=== PATIENT | male | born 1940 | race Caucasian/White ===

== ENCOUNTER 2020-06-30 14:46 | Inpatient (IN) ==
[2020-06-30] MEDS ORDERED: FUROSEMIDE 40 MG/4 ML VIAL IV ONE (15:12)
--- NOTE | 2020-06-30 15:50 | Emergency Department Note ---
HPI General Chief complaint: Extremity Problem,Nontraumatic Stated complaint: SOB, cellulitis, low BP Time Seen by Provider: 06/30/20 14:53 Source: patient Mode of arrival: ambulatory Limitations: no limitations History of Present Illness HPI Narrative: Mr. 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 His most recent emergency room visit was for acute CHF exacerbation on 06/11/20 where he had a full work-up at that time including a work-up to rule out PE, which was negative. He was diuresed in the emergency department and sent home with oral Lasix. He presents to the emergency room today with worsening lower extremity edema, abdominal bloating and shortness of breath. The patient has some dementia at baseline. I obtained a majority of his history from his via telephone this evening. She states that since he was last in the ER he's been intermittently taking his Lasix. She reports he only takes it when he is feeling more short of breath or experiencing increasing edema; however, over the last 2 weeks she has noted increasing abdominal bloating and lower extremity edema and thinks he is essentially noncompliant. She states that last night he was restless and profoundly short of breath and reports that this has been worsening over the last 2 weeks. In addition, she believes he is much more confused than his baseline. It has been many years since he has seen a hydraulic rockbreaker operator. His previous hydraulic rockbreaker operator was Dr. Elias. He has refused an ICD for his cardiomyopathy in the past. I reviewed his POLST form with his and she reports that he is DNR/ DNI, which confirms an earlier conversation I had with him. Initially the patient is agreeable to admission for diuresis; however, he has become increasingly more agitated and requesting to leave, which his feels is consistent with his ing. She has indicated she would like him to stay. Related Data Home Medications Medication Instructions Recorded Confirmed donepezil 5 mg PO DAILY 06/30/20 07/01/20 Preparation H 1 dose DC DAILY 07/02/20 07/02/20 Previous Rx's Medication Instructions Recorded digoxin 125 mcg (0.125 mg) tablet 125 mcg PO QDAY #90 tab 06/01/20 furosemide 20 mg PO QDAY #30 tab 06/12/20 hydrocortisone 2.5 % topical cream 1 applic DC QID PRN #30 g 06/22/20 with perineal applicator Allergies Allergy/AdvReac Type Severity Reaction Status Date / Time No Known Drug Allergies Allergy Verified 06/30/20 14:51 Review of Systems ROS ROS Narrative: Narrative: Constitutional: Reports as per HPI Cardiovascular: Reports dyspnea on exertion, orthopnea, edema and paroxysmal nocturnal dyspnea; Denies chest pain Respiratory: Reports shortness of breath; Denies cough and wheezes Gastrointestinal: Reports other (Abdominal bloating and fullness) Integumentary: Reports lesions (Chronic venous stasis ulcer wounds of the right lower extremity) Neurological: Reports confusion Psychiatric: Reports anxiety and other (Dementia) Endocrine: Denies polydipsia and polyuria PFSH Narrative Patient History Narrative: Heart failure with reduced EF of 25 to 30% diagnosed on echocardiogram 2014. The patient has refused placement of ICD in the past. Medical/Surgical/Family History All Active Problems Acute exacerbation of CHF (congestive heart failure) (Acute) Systolic congestive heart failure (Acute) Shortness of breath (Acute) Pleural effusion (Acute) CHF, acute on chronic (Acute) Constipation (Acute) Hemorrhoids (Acute) Anal or rectal pain (Acute) Coronary artery disease (Chronic) Cardiomegaly (Chronic) Memory loss (Acute) Edema, peripheral (Acute) Shortness of breath (Acute) Gallbladder polyp (Acute) Hypovitaminosis D (Chronic) Pulmonary nodule (Acute) CHF (congestive heart failure) (Chronic) DMII (diabetes mellitus, type 2) (Chronic) PVD (peripheral vascular disease) (Acute) Hypertension, essential (Chronic) Hyperlipidemia (Chronic) Neuropathy of both feet (Chronic) Heartburn (Chronic) Depression (Chronic) Arthritis (Chronic) History of cigarette smoking (Chronic) Chewing tobacco use (Chronic) Obesity (Chronic) Anxiety (Chronic) Medical History Abdominal pain (Inactive) Due to age and comorbidities as well as shortness of breath, pallor, and epigastric abdominal pain I feel that the patient will need a more extensive work-up and can be completed in minor care and have asked him to go directly across the street to the emergency department. Patient was in agreement. I discussed this with Dr. Reardon. Anxiety (Chronic) Anxiety (Inactive) Arthritis (Chronic) Blood pressure decreased (Inactive) Cardiomegaly (Chronic) Per CT scan 06/11/2020. Chewing tobacco use (Chronic) CHF (congestive heart failure) (Chronic) Coronary artery disease (Chronic) Visible on CT scan 06/11/2020 Depression (Chronic) DMII (diabetes mellitus, type 2) (Chronic) Heartburn (Chronic) History of cigarette smoking (Chronic) Hyperlipidemia (Chronic) Hypertension, essential (Chronic) Influenza vaccine refused (Inactive) Lumbar pain (Inactive) Lumbar strain (Inactive) Medication withdrawal (Inactive) Memory loss (Acute) Nausea alone (Inactive) Neuropathy of both feet (Chronic) Obesity (Chronic) Pallor (Inactive) Pneumococcal vaccine refused (Inactive) Pneumonia (Resolved) SOB (shortness of breath) (Inactive) Suprapubic pain (Inactive) Family History Mother Arthritis Essential hypertension Myocardial Infarction Father Arthritis Dementia Cerebrovascular accident (CVA) Unknown Diabetes mellitus Social History Smoking Status: Smokeless tobacco Alcohol Intake Frequency: does not drink Substance Use: does not use Exam Narrative Narrative: General: AOx3, dyspneic and weak. HEENT: PERRLA, EOMI, normocephalic. Moist mucous membranes. Normal facies and poor oral dentition. Neck: JVD to the clavicle is noted with head of bed at 45 degrees Chest: Symmetric Respiratory: Lungs CTAB anteriorly in the upper lobes. He is dyspneic with speaking. Heart: RRR, no M/C/R Abdomen: Mild tenderness. Distention consistent with anasarca. Extremities: Bilateral lower extremities are cold to the touch. There is 2-3+ pitting edema bilaterally. Distal pulses are weak bilaterally and 1+. Neuro: No focal deficits. Cranial nerves II-XII normal. Skin: Right lower extremity with 2 venous stasis ulcers. No associated erythema. Bilateral lower extremities consistent with venous stasis. Psych: Normal mood and affect Hematologic/lymphatic/immunologic: No lymphadenopathy. Diffuse skin bruising noted. General Limitations: no limitations Course Course Course Narrative: 79-year-old male with HFrEF 25 to 30% who is evaluated for acute CHF exacerbation. Reevaluation(s) Reevaluation #1: Basic labs including CBC and chemistry. Add BTNP. Chest x-ray Given clinical picture of anasarca and significant dyspnea on exam we will give IV Lasix now and monitor urine output. Covid screen for probable admission Reevaluation #2: BTNP is significantly elevated at 17,000. Previous evaluation on 06/11 was 8000. His CMP reveals a creatinine of 1.3 which is up from 1.1 on 06/11 so currently no JACKELINE is noted, but he remains at risk The patient has become more confused during this evaluation and is increasingly agitated requesting to leave. I have discussed the case with his who would like him to stay for diuresis. We have also discussed the possibility of a hospice evaluation during this admission, which she agrees may be appropriate. Awaiting signout with the hospitalist, Dr. Silva Vital Signs Vital signs: Vital Signs Temperature 97.0 F 06/30/20 14:46 Pulse Rate 80 06/30/20 14:46 Respiratory Rate 24 H 06/30/20 14:46 Blood Pressure 104/73 06/30/20 14:46 Pulse Oximetry (%) 97 06/30/20 14:46 Temperature 97.2 F 07/02/20 16:02 Pulse Rate 80 07/02/20 16:02 Respiratory Rate 20 07/02/20 16:02 Blood Pressure 113/74 07/02/20 16:02 Pulse Oximetry (%) 94 07/02/20 16:02 [facility] MDM Narrative Medical decision making narrative: Acute CHF exacerbation: With anasarca and symptomatic. His BTNP is significantly more elevated since his previous evaluation on 06/11/2020 in the ED. He has been noncompliant with his medicat ions, which is largely contributing to this exacerbation. -Admit inpatient hospitalist service for aggressive diuresis; the patient has been signed out to Dr. Silva -The patient declines advanced heart therapies including placement of an ICD. -I discussed the possibility of a hospice consult with the patient's , which she is amenable to. Patient is also agreeable to a hospice consult. Lab Data Result diagrams: 06/30/20 15:30 06/30/20 15:30 Labs: Lab Results 06/30/20 06/30/20 06/30/20 Range/Units 15:30 15:30 17:35 WBC 9.1 (4.5-11.0) K/mcL RBC 6.03 H (4.50-5.90) M/mcL Hgb 15.4 (13.5-16.5) g/dL Hct 48.8 (41.0-55.0) % MCV 80.9 (80.0-100.0) fL MCH 25.5 L (26.0-34.0) pg MCHC 31.6 (31.0-36.0) g/dL RDW 18.6 H (11.5-14.5) % Plt Count 267 (140-440) K/mcL MPV 10.1 (7.4-10.4) fL Neut % (Auto) 68.2 (38.0-78.0) % Lymph % (Auto) 21.2 (15.0-49.0) % [place] % (Auto) 9.4 (1.0-12.0) % Eos % (Auto) 0.8 (0.0-7.0) % Baso % (Auto) 0.4 (0.0-2.0) % Lymph # (Auto) 1.94 (1.50-4.80) K/mcL [place] # (Auto) 0.86 (0.10-0.90) K/mcL Eos # (Auto) 0.07 (0.00-0.70) K/mcL Baso # (Auto) 0.04 (0.00-0.20) K/mcL Absolute Neutrophils 6.22 (1.80-8.00) K/mcL VBG Lactic Acid 2.9 H (0.5-2.0) mmol/L Sodium 136 (133-145) mmol/L Potassium 4.4 (3.3-5.1) mmol/L Chloride 98 (96-108) mmol/L Carbon Dioxide 19 L (22-30) mmol/L Anion Gap 19.0 H (8.0-16.0) BUN 32 H (8-23) mg/dL Creatinine 1.3 H (0.7-1.2) mg/dL GFR Calculation 52 Glucose 132 H (70-105) mg/dL Calcium 9.6 (8.6-10.4) mg/dL Total Bilirubin 1.1 H (0.1-1.0) mg/dL AST 28 (<40) U/L ALT 20 (<40) U/L Alkaline Phosphatase 74 (39-117) U/L NT-Pro-B Natriuret Pep 86097.0 H (<450.0) pg/mL Total Protein 6.2 (5.9-8.4) gm/dL Albumin 3.9 (3.2-5.2) gm/dL Globulin 2.3 (2.2-3.7) gm/dL Albumin/Globulin Ratio 1.7 (1.0-2.3) Discharge Plan Patient/Caregiver Discharge Instructions Pt seen by SUBSEA ENGINEER/PA only: Yes Clinical Impression: Acute exacerbation of CHF (congestive heart failure), Systolic congestive heart failure Patient Disposition: Xfer As Inpt ([facility]) Discharge Date/Time: 06/30/20 20:45
--- NOTE | 2020-06-30 15:59 | XRay Report ---
CLINICAL INFORMATION: acute CHF exacerbation COMPARISON: 06/11/2020 FINDINGS: Moderate cardiomegaly is unchanged. Mediastinum and pulmonary vessels are unremarkable. Moderate bibasilar infiltrates and small effusions have progressed. IMPRESSION: Moderate bibasilar infiltrates and small effusions. Consider aspiration Moderate cardiomegaly, but no pulmonary vascular congestion support marcy CHF Interpreted and Authenticated by: Felipe Ortiz 06/30/20
[2020-06-30 16:03] LABS: Basophils # (Auto) 0.04 K/mcL (0.00-0.20); Basophils % (Auto) 0.4 % (0.0-2.0); Eosinophils # (Auto) 0.07 K/mcL (0.00-0.70); Eosinophils % (Auto) 0.8 % (0.0-7.0); Hematocrit 48.8 % (41.0-55.0); Hemoglobin 15.4 g/dL (13.5-16.5); Lymphocytes # (Auto) 1.94 K/mcL (1.50-4.80); Lymphocytes % (Auto) 21.2 % (15.0-49.0); Mean Cell Volume 80.9 fL (80.0-100.0); Mean Corpuscular HGB Conc 31.6 g/dL (31.0-36.0); Mean Platelet Volume 10.1 fL (7.4-10.4); Monocytes # (Auto) 0.86 K/mcL (0.10-0.90); Monocytes % (Auto) 9.4 % (1.0-12.0); Neutrophils % (Auto) 68.2 % (38.0-78.0); Platelet Count 267 K/mcL (140-440); RBC 6.03 M/mcL (4.50-5.90); Red Cell Distribution Width 18.6 % (11.5-14.5); WBC 9.1 K/mcL (4.5-11.0)
[2020-06-30 17:12] LABS: ALT/SGPT 20 U/L (<40); AST/SGOT 28 U/L (<40); Albumin 3.9 gm/dL (3.2-5.2); Albumin/Globulin Ratio 1.7 (1.0-2.3); Alkaline Phosphatase 74 U/L (39-117); Bilirubin,Total 1.1 mg/dL (0.1-1.0); Blood Urea Nitrogen 32 mg/dL (8-23); Calcium 9.6 mg/dL (8.6-10.4); Carbon Dioxide 19 mmol/L (22-30); Chloride 98 mmol/L (96-108); Globulin 2.3 gm/dL (2.2-3.7); Glomerular Filtration Rate 52; Glucose 132 mg/dL (70-105)
[2020-06-30] MEDS ORDERED: NALOXONE HCL 0.4 MG/ML VIAL IV PRN ×2 (20:10→20:50)
[2020-06-30] MEDS ORDERED: morphine 2 MG/ML VIAL IV PRN ×2 (20:10→20:50)
[2020-06-30] MEDS ORDERED: oxyCODONE/APAP 5/325MG TABLET PO PRN ×2 (20:10→20:50)
[2020-06-30] MEDS ORDERED: ACETAMINOPHEN 325 MG TABLET PO PRN ×2 (20:10→20:50)
[2020-06-30] MEDS ORDERED: IPRATROPIUM/ALBUTEROL 3 ML AMPUL.NEB NEB PRN ×2 (20:15→20:50)
[2020-06-30] MEDS ORDERED: cefTRIAXone 1 GM in DEXTROSE 5% IN WATER 50 ML IV SCH (20:15)
[2020-06-30] MEDS ORDERED: PROMETHAZINE 25 MG TABLET PO PRN ×2 (20:15→20:50)
[2020-06-30] MEDS ORDERED: HYDROCORTISONE PR PRN (20:19)
[2020-06-30] MEDS ORDERED: SODIUM CHLORIDE 0.9% IV SCH (20:30)
[2020-06-30] MEDS ORDERED: FUROSEMIDE IV SCH (20:30)
[2020-06-30] MEDS ORDERED: PIPERACILLIN SODIUM/TAZOBACTAM 3.375 GM in DEXTROSE 5% IN WATER 50 ML IV SCH (20:30)
--- NOTE | 2020-06-30 20:44 | Internal Med History&Physical ---
HPI History of Present Illness Patient information: Note initiated : 06/30/20 at 8:29 pm Service Date, if different from initiated Date: [] Patient: Michael Baugh a 79 y/o M admitted on for SOB, cellulitis, low BP. Chief Complaint: [] History of present illness: Mr. Baugh is a 79 year old M with a past medical history of CHF, diabetes type 2, and chronic back pain who was brought to the ER due to worsening shortness of breath. Patient is a poor historian. Patient has been having worsening shortness of breath with increasing abdomen bloating and lower extremity edema over the past 2 weeks. Patient visited the ER on June 11, 2020 for CHF exacerbation where she underwent a full work-up including PE which was negative. He has a senior account clerk Dr. Elias. But he has not visited him for many years. He refused ICD placement in the past. In the ER, chest x-ray showed bilateral infiltrate, possible aspiration. When I saw this patient in the ER, other than the symptoms mentioned above, he denied headache, dizziness, chest pain, abdominal pain, fever, chills, or dysuria. He wanted to go home. Review of Systems Review of systems: Positive for shortness of breath. All other systems were reviewed and negative PFSH PFSH All Active Problems Acute exacerbation of CHF (congestive heart failure) (Acute) Systolic congestive heart failure (Acute) Shortness of breath (Acute) Pleural effusion (Acute) CHF, acute on chronic (Acute) Constipation (Acute) Hemorrhoids (Acute) Anal or rectal pain (Acute) Coronary artery disease (Chronic) Cardiomegaly (Chronic) Memory loss (Acute) Edema, peripheral (Acute) Shortness of breath (Acute) Gallbladder polyp (Acute) Hypovitaminosis D (Chronic) Pulmonary nodule (Acute) CHF (congestive heart failure) (Chronic) DMII (diabetes mellitus, type 2) (Chronic) PVD (peripheral vascular disease) (Acute) Hypertension, essential (Chronic) Hyperlipidemia (Chronic) Neuropathy of both feet (Chronic) Heartburn (Chronic) Depression (Chronic) Arthritis (Chronic) History of cigarette smoking (Chronic) Chewing tobacco use (Chronic) Obesity (Chronic) Anxiety (Chronic) Medical History Abdominal pain (Inactive) Due to age and comorbidities as well as shortness of breath, pallor, and epigastric abdominal pain I feel that the patient will need a more extensive work-up and can be completed in minor care and have asked him to go directly across the street to the emergency department. Patient was in agreement. I discussed this with Dr. Reardon. Anxiety (Chronic) Anxiety (Inactive) Arthritis (Chronic) Blood pressure decreased (Inactive) Cardiomegaly (Chronic) Per CT scan 06/11/2020. Chewing tobacco use (Chronic) CHF (congestive heart failure) (Chronic) Coronary artery disease (Chronic) Visible on CT scan 06/11/2020 Depression (Chronic) DMII (diabetes mellitus, type 2) (Chronic) Heartburn (Chronic) History of cigarette smoking (Chronic) Hyperlipidemia (Chronic) Hypertension, essential (Chronic) Influenza vaccine refused (Inactive) Lumbar pain (Inactive) Lumbar strain (Inactive) Medication withdrawal (Inactive) Memory loss (Acute) Nausea alone (Inactive) Neuropathy of both feet (Chronic) Obesity (Chronic) Pallor (Inactive) Pneumococcal vaccine refused (Inactive) Pneumonia (Resolved) SOB (shortness of breath) (Inactive) Suprapubic pain (Inactive) Family History Mother Arthritis Essential hypertension Myocardial Infarction Father Arthritis Dementia Cerebrovascular accident (CVA) Unknown Diabetes mellitus Social History marital status: occupational status: retired occupation: Semi-delivery truck driver other: Children-2 grown boys smoking status: Smokeless tobacco alcohol intake frequency: does not drink substance use type: does not use additional history: 30 pack year history, quit 1997 MEDS/ALLERGIES Home Medications and Allergies Home Medications Medication Instructions Recorded Confirmed Type metformin 850 mg tablet 850 mg PO BID #180 tab 06/17/19 06/22/20 Rx blood-glucose meter #1 each 06/20/19 06/22/20 Rx lancets #100 each 06/20/19 06/22/20 Rx albuterol sulfate 90 mcg/actuation 2 puff INHALATION Q6H PRN #18 g 01/28/20 06/22/20 Rx aerosol inhaler spironolactone 50 mg tablet See Rx Instructions .ROUTE 03/11/20 06/22/20 Rx .COMPLEX #30 tab flash glucose scanning reader #1 each 04/17/20 06/22/20 Rx flash glucose sensor #1 each 04/17/20 06/22/20 Rx blood sugar diagnostic See Rx Instructions .ROUTE 04/27/20 06/22/20 Rx .COMPLEX #100 strip digoxin 125 mcg (0.125 mg) tablet 125 mcg PO QDAY #90 tab 06/01/20 06/30/20 Rx furosemide 20 mg PO QDAY #30 tab 06/12/20 06/30/20 Rx polyethylene glycol 3350 [Miralax] See Rx Instructions .ROUTE 06/17/20 06/22/20 Rx .COMPLEX #30 each hydrocortisone 2.5 % topical cream 1 applic [place] QID PRN #30 g 06/22/20 06/30/20 Rx with perineal applicator carvedilol 12.5 mg tablet See Rx Instructions .ROUTE 06/25/20 Rx .COMPLEX #180 tab Proctofoam HC 1 applic IL QID #10 g 06/26/20 Rx donepezil 5 mg PO DAILY 06/30/20 06/30/20 History Allergies Allergy/AdvReac Type Severity Reaction Status Date / Time No Known Drug Allergies Allergy Verified 06/30/20 14:51 EXAM Constitutional Vitals: Temp Pulse Resp BP Pulse Ox 97.0 F 80 20 121/83 93 06/30/20 14:46 06/30/20 19:31 06/30/20 19:46 06/30/20 19:46 06/30/20 19:31 Additional findings Additional findings: Physical exam: General: No acute distress Eye: EMOI, no conjunctival injection. HEENT: supple, mild JVD or thyroid megaly Chest: No tenderness Heart: RRR, no gallop Lungs: Deminished BS, bibasilar crackles Abdomen: Normal bowel sounds, soft, distended, no tenderness Extremities: Pitting edema 3+ until lower abdomen, no cyanosis or clubbing Neurology: A+O x 3, no focal neurological deficits Psych: Normal mood DATA Data Completed and Pending Labs: Labs from last 24 hours 06/30/20 06/30/20 06/30/20 17:35 15:30 15:30 WBC 9.1 RBC 6.03 H Hgb 15.4 Hct 48.8 MCV 80.9 MCH 25.5 L MCHC 31.6 RDW 18.6 H Plt Count 267 MPV 10.1 Neut % (Auto) 68.2 Lymph % (Auto) 21.2 [place] % (Auto) 9.4 Eos % (Auto) 0.8 Baso % (Auto) 0.4 Lymph # (Auto) 1.94 [place] # (Auto) 0.86 Eos # (Auto) 0.07 Baso # (Auto) 0.04 Absolute Neutrophils 6.22 VBG Lactic Acid 2.9 H Sodium 136 Potassium 4.4 Chloride 98 Carbon Dioxide 19 L Anion Gap 19.0 H BUN 32 H Creatinine 1.3 H GFR Calculation 52 Glucose 132 H Calcium 9.6 Total Bilirubin 1.1 H AST 28 ALT 20 Alkaline Phosphatase 74 NT-Pro-B Natriuret Pep 74999.0 H Total Protein 6.2 Albumin 3.9 Globulin 2.3 Albumin/Globulin Ratio 1.7 A/P Narrative A/P Narrative: 1. Systolic CHF exacerabation BNP 11872 on admission. It was 8142 on 06/11/2020 Previous EF 25-30% Pt and family refused ICD placement and procedures Intake and output Lasix drip 120 mg/24 hours Echocardiogram 2. Cellulitis and skin erosion, right leg Wound culture Wound care Zosyn 3. DM type 2 Diabetic diet Insulin sliding scale Adjust insulin based blood sugar levels 4. Chronic back pain Pain management including IV morphine 5. JACKELINE, creatinine 1.0 on 06/11/2020 Intake and output Avoid nephrotoxic meds and contrast But I have to give the patient Lasix. Lasix drip 120 mg per 24 hours 6. Possible pneumonia, b/l, possible aspiration Chest x-ray showed bilateral infiltrates, possible aspiration Sputum culture Zosyn 3.375 g every 8 hours 7. DVT prophylaxis: Heparin 8. CODE STATUS: DNR/DNI, comfort care No blood tests. Time Spent With Patient Time: Total time spent is greater than 50% in coordination of care (as documented) at patient's floor/unit and/or counseling patient:
[2020-06-30] MEDS ORDERED: DEXTROSE 31 GM ORAL.SUSP PO PRN ×2 (20:47→20:50)
[2020-06-30] MEDS ORDERED: DEXTROSE 50% 50 ML VIAL IV PRN ×2 (20:47→20:50)
--- NOTE | 2020-06-30 20:58 | Event Note ---
Event Note Event Note: Advanced care plan: I explained CRP,intubation and comfort care in details to pt, son and daughter in law (ken, who was our NUCLEAR MEDICAL TECHNOLOGIST supervisor [employer]). All three continued to agree with previous DNR, DNI and comfort care, and added no blood tests. They would like to continue medical treatment and agreed with antibiotics. Son and Ken updated the POLST form and signed on it. I signed on the updated POLST form.
[2020-06-30] MEDS ORDERED: INSULIN LISPRO 1 UNIT/0.01 ML UNIT SQ SCH (21:00)
[2020-06-30] MEDS ORDERED: DOCUSATE SODIUM 100 MG CAPSULE PO SCH (21:00)
[2020-06-30] MEDS ORDERED: HEPARIN 5,000 UNIT/ML VIAL SQ SCH (21:00)
[2020-06-30] MEDS ORDERED: 0.9 % SODIUM CHLORIDE 10 ML SYRINGE IV SCH (22:00)
[2020-06-30] MEDS: PIPERACILLIN SODIUM/TAZOBACTAM 3.375 GM in DEXTROSE 5% IN WATER 50 ML IV SCH (23:12)
[2020-06-30] MEDS: 0.9 % SODIUM CHLORIDE 10 ML SYRINGE IV SCH (23:50)
[2020-06-30] MEDS: DOCUSATE SODIUM 100 MG CAPSULE PO SCH (23:59)
[2020-07-01] MEDS: INSULIN LISPRO 1 UNIT/0.01 ML UNIT SQ SCH ×3 (00:09→11:33)
[2020-07-01] MEDS: HEPARIN 5,000 UNIT/ML VIAL SQ SCH ×2 (00:10→07:41)
[2020-07-01] MEDS: 0.9 % SODIUM CHLORIDE 10 ML SYRINGE IV SCH ×3 (05:16→21:40)
[2020-07-01] MEDS: PIPERACILLIN SODIUM/TAZOBACTAM 3.375 GM in DEXTROSE 5% IN WATER 50 ML IV SCH ×2 (06:10→14:50)
[2020-07-01] MEDS: DOCUSATE SODIUM 100 MG CAPSULE PO SCH ×2 (07:41→08:26)
[2020-07-01] MEDS ORDERED: CARVEDILOL 12.5 MG TABLET PO SCH ×2 (08:00)
[2020-07-01] MEDS ORDERED: DONEPEZIL 5 MG TABLET PO SCH (09:00)
[2020-07-01] MEDS ORDERED: ENOXAPARIN 40 MG/0.4 ML SYRINGE SQ SCH (09:00)
[2020-07-01] MEDS ORDERED: DIGOXIN 125 MCG TABLET PO SCH ×2 (09:00→12:00)
[2020-07-01] MEDS ORDERED: LACTULOSE 20 GM/30 ML ORAL.SOL PO PRN (10:12)
[2020-07-01] MEDS ORDERED: DONEPEZIL 10 MG TABLET PO SCH (12:00)
[2020-07-01] MEDS ORDERED: SODIUM CHLORIDE 0.9% IV SCH (12:00)
[2020-07-01] MEDS ORDERED: FUROSEMIDE IV SCH (12:00)
[2020-07-01] MEDS ORDERED: 0.9 % SODIUM CHLORIDE 250 ML IV SCH (12:45)
[2020-07-01] MEDS ORDERED: HYDROCORTISONE 2.5% PR PRN (13:49)
[2020-07-01] MEDS ORDERED: ONDANSETRON 4 MG/2 ML VIAL IV PRN ×2 (15:35→15:44)
[2020-07-01] MEDS ORDERED: LORazepam 2 MG/ML VIAL IV PRN (15:35)
[2020-07-01] MEDS ORDERED: morphine 2 MG/ML VIAL IV PRN (15:36)
[2020-07-01] MEDS ORDERED: SCOPOLAMINE 1 PATCH PATCH TOPICAL SCH (15:45)
[2020-07-01] MEDS: morphine 2 MG/ML VIAL IV PRN (16:11)
[2020-07-01] MEDS: SCOPOLAMINE 1 PATCH PATCH TOPICAL SCH (16:25)
[2020-07-01] MEDS: LORazepam 2 MG/ML VIAL IV PRN (17:10)
--- NOTE | 2020-07-01 23:05 | Internal Med Progress Note ---
SUBJECTIVE Subjective Patient information: Note initiated : 07/01/20 at 11:04 pm Service Date, if different from initiated Date: [] Patient: Michael Baugh a 79 y/o M admitted on 06/30/20 for SOB, cellulitis, low BP. Chief Complaint: [] Mr. Baugh is a 79 year old M with a past medical history of CHF, diabetes type 2, and chronic back pain who was brought to the ER due to worsening shortness of breath. Patient is a poor historian. Patient has been having worsening shortness of breath with increasing abdomen bloating and lower extremity edema over the past 2 weeks. Patient visited the ER on June 11, 2020 for CHF exacerbation where she underwent a full work-up including PE which was negative. He has a party host/hostess Dr. Elias. But he has not visited him for many years. He refused ICD placement in the past. In the ER, chest x-ray showed bilateral infiltrate, possible aspiration. When I saw this patient in the ER, other than the symptoms mentioned above, he denied headache, dizziness, chest pain, abdominal pain, fever, chills, or dysuria. He wanted to go home. 07/01 Had a family meeting today. Care conference with geriatric case manager April Jauergui, primary RN Kamini, pt's 2 sons and DIL to discuss goals of care. Pt's Pat was on speaker phone during this discussion. I updated and explained the patient condition. The all agreed with comfort care only -pain medication, Ativan for anxiety/agitation, Zofran for nausea vomiting, etc. discontinue all other medications which are not related to comfort care. They would like to start comfort care only now. Review of Systems Review of systems: Positive for shortness of breath. All other systems were reviewed and negative Constitutional Vitals: Vital Signs Temp Pulse Resp BP Pulse Ox 97.5 F 80 20 104/53 96 07/01/20 19:09 07/01/20 19:09 07/01/20 19:09 07/01/20 19:09 07/01/20 19:09 Period Temp Pulse Resp BP Sys/Marques Pulse Ox Last 24 Hr 97.4 F-98.5 F 80-94 14-25 93-129/53-98 96-100 Intake and Output 07/01/20 07/01/20 07/02/20 13:59 21:59 05:59 Intake Total 416 94 Output Total 1715 405 Balance -1299 -311 Weight 94.937 kg Patient Weight 07/02/20 05:59 Weight 94.937 kg Intake & Output: Intake & Output 07/01/20 07/01/20 07/02/20 13:59 21:59 05:59 Intake Total 416 94 Output Total 1711 405 Balance -1299 -311 Weight 94.937 kg Intake: IV 296 94 Sodium Chloride 0.9% 250 ml @ 31 10 mls/hr IV .Q24H [facility] Rx#: [id number] Lasix 120 mg In Sodium Chloride 246 13 0.9% 238 ml @ 5 MG/HR 10.417 mls/hr IV DAILY@1200 [facility] Rx#: [id number] Zosyn 3.375 gm In Dextrose 5% 50 50 in Water 50 ml @ 100 mls/hr IV Q8H [facility] Rx#:[id number] GI Tube Flush 120 Output: Urine Catheter Amount 171 405 Other: Meal Breakfast Percent of Meal Consumed Refused Urine Appearance Clear Clear Urine Color Pale Pale Urine Odor Normal Uretheral ([place]) Normal Stool Size Smear # of times incontinent of 1 2 Bowels Additional findings Additional findings: General: No acute distress Eye: EMOI, no conjunctival injection. HEENT: supple, mild JVD or thyroid megaly Chest: No tenderness Heart: RRR, no gallop Lungs: Deminished BS, bibasilar crackles Abdomen: Normal bowel sounds, soft, distended, no tenderness Extremities: Pitting edema 3+ until lower abdomen, no cyanosis or clubbing Neurology: A+O x 2, no focal neurological deficits Psych: Normal mood OBJ DATA Labs CBC & Chem 7: 06/30/20 15:30 06/30/20 15:30 Labs: Abnormal Lab Results 06/30/20 06/30/20 06/30/20 17:35 15:30 15:30 RBC 6.03 H MCH 25.5 L RDW 18.6 H VBG Lactic Acid 2.9 H Carbon Dioxide 19 L Anion Gap 19.0 H BUN 32 H Creatinine 1.3 H Glucose 132 H Total Bilirubin 1.1 H NT-Pro-B Natriuret Pep 20839.0 H Meds: Medications Lorazepam (Ativan) 0.5 mg IV Q2-4HP PRN PRN Reason: ANXIETY/SEDATION Last Admin: 07/01/20 17:10 Dose: 0.5 mg Documented by: Morphine Sulfate (Morphine) 2 mg IV Q2HP PRN PRN Reason: Chest Pain Last Admin: 07/01/20 16:11 Dose: 2 mg Documented by: Ondansetron HCl (Zofran) 4 mg IV Q4-6HP PRN PRN Reason: Nausea And Vomiting Scopolamine (Transderm-Scop) 1 patch TOPICAL Q72H [facility] Last Admin: 07/01/20 16:25 Dose: 1 patch Documented by: Sodium Chloride (Saline Flush) 10 ml IV Q8 [facility] Last Admin: 07/01/20 21:40 Dose: 10 ml Documented by: A/P Narrative A/P Narrative: Assessment: 1. Systolic CHF exacerabation 2. Cellulitis and skin erosion, right leg 3. DM type 2 4. Chronic back pain 5. JACKELINE, creatinine 1.0 on 06/11/2020 6. Possible pneumonia, b/l, possible aspiration Plan: Comfort care only: Ativan 0.5 mg IV every 2 to 4 hours as needed Morphine 2 mg IV every 2 hours as needed Zofran 4 mg will IV every 4 to 6 hours as needed Scopolamine patch 1 patch topical q. 72 Time Spent With Patient Time: Total time spent is greater than 50% in coordination of care (as documented) at patient's floor/unit and/or counseling patient: QUALITY VTE Deep Vein Thrombosis/Pulmonary Embolism Present on Admission: No
[2020-07-02] MEDS: 0.9 % SODIUM CHLORIDE 10 ML SYRINGE IV SCH ×3 (06:33→20:19)
[2020-07-02] MEDS ORDERED: PREPARATION H TOPICAL PRN (13:15)
[2020-07-02] MEDS: morphine 2 MG/ML VIAL IV PRN (13:22)
--- NOTE | 2020-07-02 19:43 | Internal Med Progress Note ---
SUBJECTIVE Subjective Patient information: Note initiated : 07/02/20 at 7:40 pm Service Date, if different from initiated Date: [] Patient: Michael Baugh a 79 y/o M admitted on 06/30/20 for SOB, cellulitis, low BP. Chief Complaint: [] Mr. Baugh is a 79 year old M with a past medical history of CHF, diabetes type 2, and chronic back pain who was brought to the ER due to worsening shortness of breath. Patient is a poor historian. Patient has been having worsening shortness of breath with increasing abdomen bloating and lower extremity edema over the past 2 weeks. Patient visited the ER on June 11, 2020 for CHF exacerbation where she underwent a full work-up including PE which was negative. He has a scooper Dr. Elias. But he has not visited him for many years. He refused ICD placement in the past. In the ER, chest x-ray showed bilateral infiltrate, possible aspiration. When I saw this patient in the ER, other than the symptoms mentioned above, he denied headache, dizziness, chest pain, abdominal pain, fever, chills, or dysuria. He wanted to go home. 07/01 Had a family meeting today. Care conference with shelter case manager April Jauregui, primary RN Kamini, pt's 2 sons and DIL to discuss goals of care. Pt's Pat was on speaker phone during this discussion. I updated and explained the patient condition. The all agreed with comfort care only -pain medication, Ativan for anxiety/agitation, Zofran for nausea vomiting, etc. discontinue all other medications which are not related to comfort care. They would like to start comfort care only now. 07/02 Sleeping. He seems to be comfortable. He is on comfort care only. No overnight events Review of Systems Review of systems: Positive for shortness of breath. All other systems were reviewed and negative Constitutional Vitals: Vital Signs Temp Pulse Resp BP Pulse Ox 97.2 F 80 20 113/74 94 07/02/20 16:02 07/02/20 16:02 07/02/20 16:02 07/02/20 16:02 07/02/20 16:02 Period Temp Pulse Resp BP Sys/Marques Pulse Ox Last 24 Hr 97 F-97.2 F 55-80 18-20 109-113/74-76 91-94 Intake and Output 07/02/20 07/02/20 07/02/20 05:59 13:59 21:59 Intake Total 0 400 200 Output Total 275 225 Balance -275 175 200 Intake & Output: Intake & Output 07/02/20 07/02/20 07/02/20 05:59 13:59 21:59 Intake Total 0 400 200 Output Total 275 225 Balance -275 175 200 Intake: Oral 0 400 200 Output: Urine Catheter Amount 275 Void Amount 225 Other: Meal Lunch Percent of Meal Consumed Refused 25% Feeding Ability Assist with Tray Set Up Urine Appearance Clear Clear Urine Color Light Vianey Dark Vianey Stool Size Smear Moderate Stool Color Brown Brown Stool Consistency Soft # of times incontinent of 1 Bowels Additional findings Additional findings: General: sleeping, no acute distress Eye: EMOI, no conjunctival injection. HEENT: mild JVD or thyroid megaly Chest: No abnormalities Heart: RRR, no gallop Lungs: Deminished BS, bibasilar crackles Abdomen: Normal bowel sounds, soft, distended Extremities: Pitting edema 3+ until lower abdomen, no cyanosis or clubbing Neurology: sleeping Psych: sleeping OBJ DATA Labs CBC & Chem 7: 06/30/20 15:30 06/30/20 15:30 Labs: Abnormal Lab Results 06/30/20 06/30/20 06/30/20 17:35 15:30 15:30 RBC 6.03 H MCH 25.5 L RDW 18.6 H VBG Lactic Acid 2.9 H Carbon Dioxide 19 L Anion Gap 19.0 H BUN 32 H Creatinine 1.3 H Glucose 132 H Total Bilirubin 1.1 H NT-Pro-B Natriuret Pep 02872.0 H Meds: Medications Lorazepam (Ativan) 0.5 mg IV Q2-4HP PRN PRN Reason: ANXIETY/SEDATION Last Admin: 07/01/20 17:10 Dose: 0.5 mg Documented by: Morphine Sulfate (Morphine) 2 mg IV Q2HP PRN PRN Reason: Chest Pain Last Admin: 07/02/20 13:22 Dose: 2 mg Documented by: Ondansetron HCl (Zofran) 4 mg IV Q4-6HP PRN PRN Reason: Nausea And Vomiting Preparation H ( Lidocaine/Phenylephrine/Glycerin/White Petrolatum) Cream 1 dose TOPICAL DAILYP PRN PRN Reason: HEMMORHOIDS Scopolamine (Transderm-Scop) 1 patch TOPICAL Q72H [facility] Last Admin: 07/01/20 16:25 Dose: 1 patch Documented by: Sodium Chloride (Saline Flush) 10 ml IV Q8 [facility] Last Admin: 07/02/20 13:24 Dose: 10 ml Documented by: A/P Narrative A/P Narrative: 1. Systolic CHF exacerabation 2. Cellulitis and skin erosion, right leg 3. DM type 2 4. Chronic back pain 5. JACKELINE, creatinine 1.0 on 06/11/2020 6. Possible pneumonia, b/l, possible aspiration Plan: Comfort care only: Ativan 0.5 mg IV every 2 to 4 hours as needed Morphine 2 mg IV every 2 hours as needed Zofran 4 mg will IV every 4 to 6 hours as needed Scopolamine patch 1 patch topical q. 72 Time Spent With Patient Time: Total time spent is greater than 50% in coordination of care (as documented) at patient's floor/unit and/or counseling patient: QUALITY VTE Deep Vein Thrombosis/Pulmonary Embolism Present on Admission: No
[2020-07-02] MEDS: LORazepam 2 MG/ML VIAL IV PRN (20:18)
[2020-07-03] MEDS: morphine 2 MG/ML VIAL IV PRN ×2 (00:38→14:20)
[2020-07-03] MEDS: LORazepam 2 MG/ML VIAL IV PRN ×2 (03:17→10:30)
[2020-07-03] MEDS: 0.9 % SODIUM CHLORIDE 10 ML SYRINGE IV SCH ×2 (04:00→14:21)
--- NOTE | 2020-07-03 16:08 | Internal Med Progress Note ---
SUBJECTIVE Subjective Patient information: Note initiated : 07/03/20 at 4:06 pm Service Date, if different from initiated Date: [] Patient: Michael Baugh a 79 y/o M admitted on 06/30/20 for SOB, cellulitis, low BP. Chief Complaint: [] Mr. Baugh is a 79 year old M with a past medical history of CHF, diabetes type 2, and chronic back pain who was brought to the ER due to worsening shortness of breath. Patient is a poor historian. Patient has been having worsening shortness of breath with increasing abdomen bloating and lower extremity edema over the past 2 weeks. Patient visited the ER on June 11, 2020 for CHF exacerbation where she underwent a full work-up including PE which was negative. 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 But he has not visited him for many years. He refused ICD placement in the past. In the ER, chest x-ray showed bilateral infiltrate, possible aspiration. When I saw this patient in the ER, other than the symptoms mentioned above, he denied headache, dizziness, chest pain, abdominal pain, fever, chills, or dysuria. He wanted to go home. 07/01 Had a family meeting today. Care conference with case filler April Jauregui, primary RN Kamini, pt's 2 sons and DIL to discuss goals of care. Pt's Pat was on speaker phone during this discussion. I updated and explained the patient condition. The all agreed with comfort care only -pain medication, Ativan for anxiety/agitation, Zofran for nausea vomiting, etc. discontinue all other medications which are not related to comfort care. They would like to start comfort care only now. 07/02 Sleeping. He seems to be comfortable. He is on comfort care only. No overnight events 07/03 Most of the time patient is sleeping. When he wakes, he does not answer any questions. He seems to be comfortable Continue comfort care Review of Systems Unable to complete due to mental status Constitutional Vitals: Vital Signs Temp Pulse Resp BP Pulse Ox 97.5 F 77 12 120/73 99 07/03/20 06:29 07/03/20 07:30 07/03/20 07:30 07/03/20 06:29 07/03/20 07:30 Period Temp Pulse Resp BP Sys/Marques Pulse Ox Last 24 Hr 97.1 F-97.5 F 77-93 06-28 120-129/73-85 80-99 Intake and Output 07/03/20 07/03/20 07/03/20 05:59 13:59 21:59 Intake Total 600 Output Total 350 350 Balance 250 -350 Intake & Output: Intake & Output 07/03/20 07/03/20 07/03/20 05:59 13:59 21:59 Intake Total 600 Output Total 350 350 Balance 250 -350 Intake: Oral 600 Output: Urine Catheter Amount 350 Void Amount 350 Other: Meal Lunch Percent of Meal Consumed 0% Feeding Ability Total Assistance Urine Appearance Cloudy Clear Uretheral (Turpin) Clear Urine Color Tea Colored Dark Vianey Uretheral (Turpin) Dark Vianey Urine Odor Strong Stool Size Smear Stool Color Brown # of times incontinent of 1 Bowels Additional findings Additional findings: General: sleeping, no acute distress Eye: EMOI, no conjunctival injection. HEENT: mild JVD or thyroid megaly Chest: No abnormalities Heart: RRR, no gallop Lungs: Deminished BS, bibasilar crackles Abdomen: Normal bowel sounds, soft, distended Extremities: Pitting edema 3+ until lower abdomen, no cyanosis or clubbing Neurology: sleeping Psych: sleeping OBJ DATA Labs CBC & Chem 7: 06/30/20 15:30 06/30/20 15:30 Labs: Abnormal Lab Results 06/30/20 06/30/20 17:35 15:30 VBG Lactic Acid 2.9 H Carbon Dioxide 19 L Anion Gap 19.0 H BUN 32 H Creatinine 1.3 H Glucose 132 H Total Bilirubin 1.1 H NT-Pro-B Natriuret Pep 27858.0 H Meds: Medications Lorazepam (Ativan) 0.5 mg IV Q2-4HP PRN PRN Reason: ANXIETY/SEDATION Last Admin: 07/03/20 10:30 Dose: 0.5 mg Documented by: Morphine Sulfate (Morphine) 2 mg IV Q2HP PRN PRN Reason: Chest Pain Last Admin: 07/03/20 14:20 Dose: 2 mg Documented by: Ondansetron HCl (Zofran) 4 mg IV Q4-6HP PRN PRN Reason: Nausea And Vomiting Preparation H ( Lidocaine/Phenylephrine/Glycerin/White Petrolatum) Cream 1 dose TOPICAL DAILYP PRN PRN Reason: HEMMORHOIDS Scopolamine (Transderm-Scop) 1 patch TOPICAL Q72H [facility] Last Admin: 07/01/20 16:25 Dose: 1 patch Documented by: Sodium Chloride (Saline Flush) 10 ml IV Q8 [facility] Last Admin: 07/03/20 14:21 Dose: 10 ml Documented by: A/P Narrative A/P Narrative: 1. Systolic CHF exacerabation 2. Cellulitis and skin erosion, right leg 3. DM type 2 4. Chronic back pain 5. JACKELINE, creatinine 1.0 on 06/11/2020 6. Possible pneumonia, b/l, possible aspiration Plan: Comfort care only: Ativan 0.5 mg IV every 2 to 4 hours as needed Morphine 2 mg IV every 2 hours as needed Zofran 4 mg will IV every 4 to 6 hours as needed Scopolamine patch 1 patch topical q. 72 Time Spent With Patient Time: Total time spent is greater than 50% in coordination of care (as documented) at patient's floor/unit and/or counseling patient: QUALITY VTE Deep Vein Thrombosis/Pulmonary Embolism Present on Admission: No
[2020-07-04] MEDS: 0.9 % SODIUM CHLORIDE 10 ML SYRINGE IV SCH ×4 (00:40→20:57)
[2020-07-04] MEDS: LORazepam 2 MG/ML VIAL IV PRN ×2 (07:13→17:54)
[2020-07-04] MEDS: morphine 2 MG/ML VIAL IV PRN ×2 (09:52→13:55)
[2020-07-04] MEDS: SCOPOLAMINE 1 PATCH PATCH TOPICAL SCH (15:44)
--- NOTE | 2020-07-04 17:57 | Internal Med Progress Note ---
SUBJECTIVE Subjective Patient information: Note initiated : 07/04/20 at 5:55 pm Service Date, if different from initiated Date: [] Patient: Michael Baugh a 79 y/o M admitted on 06/30/20 for SOB, cellulitis, low BP. Chief Complaint: [] Mr. Baugh is a 79 year old M with a past medical history of CHF, diabetes type 2, and chronic back pain who was brought to the ER due to worsening shortness of breath. Patient is a poor historian. Patient has been having worsening shortness of breath with increasing abdomen bloating and lower extremity edema over the past 2 weeks. Patient visited the ER on June 11, 2020 for CHF exacerbation where she underwent a full work-up including PE which was negative. 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 Elias. But he has not visited him for many years. He refused ICD placement in the past. In the ER, chest x-ray showed bilateral infiltrate, possible aspiration. When I saw this patient in the ER, other than the symptoms mentioned above, he denied headache, dizziness, chest pain, abdominal pain, fever, chills, or dysuria. He wanted to go home. 07/01 Had a family meeting today. Care conference with hospice case manager April Jauregui, primary RN Kamini, pt's 2 sons and DIL to discuss goals of care. Pt's Pat was on speaker phone during this discussion. I updated and explained the patient condition. The all agreed with comfort care only -pain medication, Ativan for anxiety/agitation, Zofran for nausea vomiting, etc. discontinue all other medications which are not related to comfort care. They would like to start comfort care only now. 07/02 Sleeping. He seems to be comfortable. He is on comfort care only. No overnight events 07/03 Most of the time patient is sleeping. When he wakes, he does not answer any questions. He seems to be comfortable Continue comfort care 07/04 Today pt is more alert and awake. He can drink water with help. No overnight events Awaiting for placement Review of Systems Unable to complete due to mental status Constitutional Vitals: Vital Signs Temp Pulse Resp BP Pulse Ox 97.4 F 90 20 110/73 93 07/04/20 07:13 07/04/20 07:13 07/04/20 08:00 07/04/20 07:13 07/04/20 08:00 Period Temp Pulse Resp BP Sys/Marques Pulse Ox Last 24 Hr 97.4 F-98.4 F 78-90 20-20 110-122/73-76 93-94 Intake and Output 07/04/20 07/04/20 07/04/20 05:59 13:59 21:59 Intake Total 300 50 Output Total 325 300 Balance -25 -250 Intake & Output: Intake & Output 07/04/20 07/04/20 07/04/20 05:59 13:59 21:59 Intake Total 300 50 Output Total 325 300 Balance -25 -250 Intake: Oral 300 50 Output: Urine Catheter Amount 325 300 Other: Urine Appearance Clear Clear Clear Uretheral (Turpin) Clear Urine Color Dark Vianey Dark Vianey Brown Tea Colored Uretheral (Turpin) Dark Vianey Tea Colored Urine Odor Strong Strong Stool Size Smear Stool Color Brown Stool Consistency Soft Additional findings Additional findings: General: sleeping, no acute distress Eye: EMOI, no conjunctival injection. HEENT: mild JVD or thyroid megaly Chest: No abnormalities Heart: RRR, no gallop Lungs: Deminished BS, bibasilar crackles Abdomen: Normal bowel sounds, soft, distended Extremities: Pitting edema 3+ until lower abdomen, no cyanosis or clubbing Neurology: sleeping Psych: sleeping OBJ DATA Labs CBC & Chem 7: 06/30/20 15:30 06/30/20 15:30 Meds: Medications Lorazepam (Ativan) 0.5 mg IV Q2-4HP PRN PRN Reason: ANXIETY/SEDATION Last Admin: 07/04/20 17:54 Dose: 0.5 mg Documented by: Morphine Sulfate (Morphine) 2 mg IV Q2HP PRN PRN Reason: Chest Pain Last Admin: 07/04/20 13:55 Dose: 2 mg Documented by: Ondansetron HCl (Zofran) 4 mg IV Q4-6HP PRN PRN Reason: Nausea And Vomiting Preparation H ( Lidocaine/Phenylephrine/Glycerin/White Petrolatum) Cream 1 dose TOPICAL DAILYP PRN PRN Reason: HEMMORHOIDS Scopolamine (Transderm-Scop) 1 patch TOPICAL Q72H [facility] Last Admin: 07/04/20 15:44 Dose: 1 patch Documented by: Sodium Chloride (Saline Flush) 10 ml IV Q8 [facility] Last Admin: 07/04/20 15:44 Dose: 10 ml Documented by: A/P Narrative A/P Narrative: 1. Systolic CHF exacerabation 2. Cellulitis and skin erosion, right leg 3. DM type 2 4. Chronic back pain 5. JACKELINE, creatinine 1.0 on 06/11/2020 6. Possible pneumonia, b/l, possible aspiration Plan: Comfort care only: Ativan 0.5 mg IV every 2 to 4 hours as needed Morphine 2 mg IV every 2 hours as needed Zofran 4 mg will IV every 4 to 6 hours as needed Scopolamine patch 1 patch topical q. 72 Time Spent With Patient Time: Total time spent is greater than 50% in coordination of care (as documented) at patient's floor/unit and/or counseling patient: QUALITY VTE Deep Vein Thrombosis/Pulmonary Embolism Present on Admission: No
[2020-07-05] MEDS: LORazepam 2 MG/ML VIAL IV PRN ×3 (02:28→23:14)
[2020-07-05] MEDS: 0.9 % SODIUM CHLORIDE 10 ML SYRINGE IV SCH ×3 (06:40→20:54)
[2020-07-05] MEDS: morphine 2 MG/ML VIAL IV PRN (07:12)
--- NOTE | 2020-07-05 16:44 | Internal Med Progress Note ---
SUBJECTIVE Subjective Patient information: Note initiated : 07/05/20 at 4:42 pm Service Date, if different from initiated Date: [] Patient: Michael Baugh a 79 y/o M admitted on 06/30/20 for SOB, cellulitis, low BP. Chief Complaint: [] Mr. Baugh is a 79 year old M with a past medical history of CHF, diabetes type 2, and chronic back pain who was brought to the ER due to worsening shortness of breath. Patient is a poor historian. Patient has been having worsening shortness of breath with increasing abdomen bloating and lower extremity edema over the past 2 weeks. Patient visited the ER on June 11, 2020 for CHF exacerbation where she underwent a full work-up including PE which was negative. 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 But he has not visited him for many years. He refused ICD placement in the past. In the ER, chest x-ray showed bilateral infiltrate, possible aspiration. When I saw this patient in the ER, other than the symptoms mentioned above, he denied headache, dizziness, chest pain, abdominal pain, fever, chills, or dysuria. He wanted to go home. 07/01 Had a family meeting today. Care conference with case fitter April Jauregui, primary RN Kamini, pt's 2 sons and DIL to discuss goals of care. Pt's Pat was on speaker phone during this discussion. I updated and explained the patient condition. The all agreed with comfort care only -pain medication, Ativan for anxiety/agitation, Zofran for nausea vomiting, etc. discontinue all other medications which are not related to comfort care. They would like to start comfort care only now. 07/02 Sleeping. He seems to be comfortable. He is on comfort care only. No overnight events 07/03 Most of the time patient is sleeping. When he wakes, he does not answer any questions. He seems to be comfortable Continue comfort care 07/04 Today pt is more alert and awake. He can drink water with help. No overnight events Awaiting for placement 07/05 When I saw this patient this morning, he was sleeping. He seems to be comfortable No overnight events Review of Systems Unable to complete due to mental status Constitutional Vitals: Vital Signs Temp Pulse Resp BP Pulse Ox 97.4 F 90 20 115/89 98 07/05/20 07:31 07/05/20 07:31 07/05/20 08:00 07/05/20 07:31 07/05/20 08:00 Period Temp Pulse Resp BP Sys/Marques Pulse Ox Last 24 Hr 97.4 F-97.4 F 89-90 20-20 115-126/89-91 94-98 Intake and Output 07/05/20 07/05/20 07/05/20 05:59 13:59 21:59 Intake Total 50 180 Output Total 375 Balance -325 180 Intake & Output: Intake & Output 07/05/20 07/05/20 07/05/20 05:59 13:59 21:59 Intake Total 50 180 Output Total 375 Balance -325 180 Intake: Oral 50 180 Output: Urine Catheter Amount 375 Other: Meal Lunch Percent of Meal Consumed 0% Feeding Ability Total Assistance Urine Appearance Clear Clear Uretheral (Turpin) Clear Urine Color Tea Colored Dark Vianey Tea Colored Uretheral (Turpin) Dark Vianey Tea Colored Urine Odor Strong Stool Size Smear Stool Color Brown Stool Consistency Soft Additional findings Additional findings: General: sleeping, no acute distress Eye: EMOI, no conjunctival injection. HEENT: mild JVD or thyroid megaly Chest: No abnormalities Heart: RRR, no gallop Lungs: Deminished BS, bibasilar crackles Abdomen: Normal bowel sounds, soft, distended Extremities: Pitting edema 3+ until lower abdomen, no cyanosis or clubbing Neurology: sleeping Psych: sleeping OBJ DATA Labs CBC & Chem 7: 06/30/20 15:30 06/30/20 15:30 Meds: Medications Lorazepam (Ativan) 0.5 mg IV Q2-4HP PRN PRN Reason: ANXIETY/SEDATION Last Admin: 07/05/20 14:07 Dose: 0.5 mg Documented by: Morphine Sulfate (Morphine) 2 mg IV Q2HP PRN PRN Reason: Chest Pain Last Admin: 07/05/20 07:12 Dose: 2 mg Documented by: Ondansetron HCl (Zofran) 4 mg IV Q4-6HP PRN PRN Reason: Nausea And Vomiting Preparation H ( Lidocaine/Phenylephrine/Glycerin/White Petrolatum) Cream 1 dose TOPICAL DAILYP PRN PRN Reason: HEMMORHOIDS Scopolamine (Transderm-Scop) 1 patch TOPICAL Q72H [facility] Last Admin: 07/04/20 15:44 Dose: 1 patch Documented by: Sodium Chloride (Saline Flush) 10 ml IV Q8 [facility] Last Admin: 07/05/20 14:07 Dose: 10 ml Documented by: A/P Narrative A/P Narrative: 1. Systolic CHF exacerabation 2. Cellulitis and skin erosion, right leg 3. DM type 2 4. Chronic back pain 5. JACKELINE, creatinine 1.0 on 06/11/2020 6. Possible pneumonia, b/l, possible aspiration Plan: Comfort care only: Ativan 0.5 mg IV every 2 to 4 hours as needed Morphine 2 mg IV every 2 hours as needed Zofran 4 mg will IV every 4 to 6 hours as needed Scopolamine patch 1 patch topical q. 72 Time Spent With Patient Time: Total time spent is greater than 50% in coordination of care (as d ocumented) at patient's floor/unit and/or counseling patient: QUALITY VTE Deep Vein Thrombosis/Pulmonary Embolism Present on Admission: No
[2020-07-06] MEDS: LORazepam 2 MG/ML VIAL IV PRN (02:44)
[2020-07-06] MEDS: 0.9 % SODIUM CHLORIDE 10 ML SYRINGE IV SCH (10:03)
--- NOTE | 2020-07-06 12:46 | Discharge Summary ---
Discharge Provider Provider Patient information: Note initiated : 07/06/20 at 12:40 pm Service Date, if different from initiated Date: [] Patient: Michael Baugh 79 y/o M admitted on 06/30/20 for SOB, cellulitis, low BP. Chief Complaint: [] Date of admission: 06/30/20 20:43 Discharge date: 07/06/20 Primary care physician: Bruce Miller M.D., F.A.A.F.P. Consults: 06/30/20 18:51 Consult to Physician [CONS] Stat Comment: Consulting Provider: Miguel Silva Reason For Exam: Physician to Consult 07/01/20 16:36 Consult to Physician [CONS] Routine Comment: Consulting Provider: [facility] [place] Reason For Exam: Physician to Consult Discharge Meds Discharge Medications Home Medications lorazepam [Ativan] 0.5 mg PO Q6HP PRN #10 tab 07/06/20 [Rx Last Taken Unknown] morphine 10 mg PO Q6HP PRN #10 cap 07/06/20 [Rx Last Taken Unknown] ondansetron HCl [Zofran] 4 mg PO Q6HP PRN #14 tab 07/06/20 [Rx Last Taken Unknown] scopolamine base [Transderm-Scop] 1 patch TOPICAL Q72H #2 ea 07/06/20 [Rx Last Taken Unknown] COURSE Hospital Course Hospital course: Mr. Baugh is a 79 year old M with a past medical history of CHF, diabetes type 2, and chronic back pain who was brought to the ER due to worsening shortness of breath. Patient is a poor historian. Patient has been having worsening shortness of breath with increasing abdomen bloating and lower extremity edema over the past 2 weeks. Patient visited the ER on June 11, 2020 for CHF exacerbation where she underwent a full work-up including PE which was negative. 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 But he has not visited him for many years. He refused ICD placement in the past. In the ER, chest x-ray showed bilateral infiltrate, possible aspiration. When I saw this patient in the ER, other than the symptoms mentioned above, he denied headache, dizziness, chest pain, abdominal pain, fever, chills, or dysuria. He wanted to go home. 1. Systolic CHF exacerabation 2. Cellulitis and skin erosion, right leg 3. DM type 2 4. Chronic back pain 5. JACKELINE, creatinine 1.0 on 06/11/2020 6. Possible pneumonia, b/l, possible aspiration Plan: Comfort care only: Ativan 0.5 mg IV every 2 to 4 hours as needed Morphine 2 mg IV every 2 hours as needed Zofran 4 mg will IV every 4 to 6 hours as needed Scopolamine patch 1 patch topical q. 72 Interval history: 07/01 Had a family meeting today. Care conference with nurse outreach case manager April Jauregui, primary RN Kamini, pt's 2 sons and DIL to discuss goals of care. Pt's Danni was on speaker phone during this discussion. I updated and explained the patient condition. The all agreed with comfort care only -pain medication, Ativan for anxiety/agitation, Zofran for nausea vomiting, etc. discontinue all other medications which are not related to comfort care. They would like to start comfort care only now. 07/02 Sleeping. He seems to be comfortable. He is on comfort care only. No overnight events 07/03 Most of the time patient is sleeping. When he wakes, he does not answer any questions. He seems to be comfortable Continue comfort care 07/04 Today pt is more alert and awake. He can drink water with help. No overnight events Awaiting for placement 07/05 When I saw this patient this morning, he was sleeping. He seems to be comfortable No overnight events 07/05 Pt was sleeping when I saw him this morning. He is on comfort care. He seems to be comfortable. He will be discharged to a facility to continue comfort care Call PCP or staff at the facility for medical issues. Discharge diagnosis: Systolic CHF exacerabation Time Spent with Patient Time attestation: Total time spent providing and/or coordinating discharge services: EXAM Constitutional Vitals: Temp Pulse Resp BP Pulse Ox 97.2 F 109 H 18 140/99 95 07/06/20 07:47 07/06/20 07:47 07/06/20 07:47 07/06/20 07:47 07/06/20 07:47 Additional findings Additional findings: General: sleeping, no acute distress Eye: EMOI, no conjunctival injection. HEENT: mild JVD or thyroid megaly Chest: No abnormalities Heart: RRR, no gallop Lungs: Deminished BS, bibasilar crackles Abdomen: Normal bowel sounds, soft, distended Extremities: Pitting edema 3+ until lower abdomen, no cyanosis or clubbing Neurology: sleeping Psych: sleeping Discharge Plan Patient/Caregiver Discharge Instructions Prescriptions: New scopolamine base [Transderm-Scop] 1 mg over 3 days Patch 3 Day 1 patch topical Q72H Qty: 2 RF: 0 morphine 10 mg capsule,extend.release pellets 10 mg PO Q6HP PRN (Reason: pain (scale score 1-10) Qty: 10 RF: 0 lorazepam [Ativan] 0.5 mg tablet 0.5 mg PO Q6HP PRN (Reason: agitation anxiety) Qty: 10 RF: 0 ondansetron HCl [Zofran] 4 mg tablet 4 mg PO Q6HP PRN (Reason: nausea and vomiting) Qty: 14 RF: 0 Discontinued digoxin 125 mcg (0.125 mg) tablet 125 mcg PO QDAY Qty: 90 RF: 4 hydrocortisone 2.5 % cream with perineal applicator 1 applic GA QID PRN (Reason: hemorrhoids) Qty: 30 RF: 3 furosemide 20 mg tablet 20 mg PO QDAY Qty: 30 RF: 0 donepezil 5 mg tablet 5 mg PO DAILY RF: 0 Preparation H ointment 1 dose GA DAILY RF: 0 Follow Up Plan Follow up with: Bruce Miller MD, FAAFP [Primary Care Provider] - Unknown [Outside] (f/u with pcp ruby and comfort care team. ) Patient Disposition: Xfer SNF I certify that the patient requires SNF services: Yes Discharge Orders: Discharge Order (Routine); Ordered 07/06/20 Ordered By: Miguel LNADA VTE Deep Vein Thrombosis/Pulmonary Embolism Present on Admission: No
[2020-07-06] MEDS ORDERED: morphine 20 MG/ML ORAL.CONC PO ONE (13:32)
[2020-07-06] MEDS ORDERED: LORazepam 0.5 MG TABLET PO ONE (13:33)
== END 2020-07-06 13:55 | DRG 291 ==
LOC: ED 14:46 → ICU 20:43 → MEDSUR 07-01 18:02
PROVIDERS: ADMIT Internal Medicine; ATTEND Internal Medicine